=== PATIENT | male | born 1970 | race Caucasian/White ===

== ENCOUNTER 2018-07-28 11:23 | Emergency (ER) | payer OTHER ==
[2018-07-28 11:31] VITALS: TEMP 97.8; BMI 25.8
--- NOTE | 2018-07-28 11:33 | PDOC ---
History of Present Illness - General Chief Complaint: Lightheaded Stated Complaint: DIZZINESS Time Seen by Provider: 07/28/18 11:32 History Source: Patient Exam Limitations: No Limitations - History of Present Illness Initial Comments: Pt is a 47 yo M, with PMH of hypothyroidism (on levothyroxine), who is presenting via EMS with complaints of vertigo and nausea since he woke up this AM. Pt states it started immediately when he awoke "with the room spinning around me" and was worsened when he stood up to go to the bathroom. He had mild ear "pressure" last night, but no rhinorrhea or ear discharge. Pt has had vertigo only once before while blowing his nose, but it improved after a few minutes with no intervention. Pt has chronic sinus issues, and often takes Advil cold and sinus before bed (last nasal scope by ENT showed no irregularities). Pt states he also gets frequent nosebleeds in the morning. Pt denies any recent fevers/chills, head trauma or falls, headache, vision changes , syncope, chest pain, palpitations, SOB, vomiting, abdominal pain, urinary symptoms, diarrhea/constipation, or leg swelling. Social: Pt denies any cigarette, alcohol, or drug use. Pt denies any recent travel or sick contacts. Surgical: no relevant history. Family: mother - TIFFANIE, age 73. 07/28/18 13:50 Past History - Travel Traveled outside of the country in the last 30 days: No Close contact w/someone who was outside of country & ill: No - Past Medical History Allergies/Adverse Reactions: Allergies Allergy/AdvReac Type Severity Reaction Status Date / Time Fish Containing Products Allergy Severe Verified 07/28/18 11:29 Iodine and Iodide Containing Allergy Severe Verified 07/28/18 11:29 Produc Home Medications: Ambulatory Orders Levothyroxine Sodium [Synthroid] 137 mcg PO DAILY 07/28/18 Meclizine HCl 50 mg PO DAILY PRN #30 tablet 07/28/18 COPD: No Thyroid Disease: Yes (HYPO.) - Surgical History Abdominal Surgery: Yes Cholecystectomy: Yes (06/2013) - Family Disease History Family Disease History: Diabetes: Father - Immunization History Immunization Up to Date: No - Suicide/Smoking/Psychosocial Hx Smoking History: Never smoked Have you smoked in the past 12 months: No Number of Cigarettes Smoked Daily: 0 Information on smoking cessation initiated: No Hx Alcohol Use: No Drug/Substance Use Hx: No Substance Use Type: None Review of Systems - Review of Systems Able to Perform ROS?: Yes Is the patient limited Hungarian proficient: No Constitutional: Yes: Weight Stable. No: Chills, Diaphoresis, Fever, Loss of Appetite, Malaise, Weakness HEENTM: Yes: See HPI, Ear Pain (ear pressure last night), Nose Congestion, Nose Bleeding. No: Eye Pain, Blurred Vision, Tearing, Recent change in vision, Double Vision, Ear Discharge, Nose Pain, Tinnitus, Hearing Loss, Throat Pain, Throat Swelling, Mouth Pain, Difficulty Swallowing Respiratory: No: Cough, Orthopnea, Shortness of Breath Cardiac (ROS): No: Chest Pain, Edema, Irregular Heart Rate, Lightheadedness, Palpitations, Syncope, Chest Tightness ABD/GI: No: Constipated, Diarrhea, Nausea, Poor Appetite, Poor Fluid Intake, Vomiting : No: Burning, Dysuria, Pain, Urgency Musculoskeletal: No: Back Pain, Joint Pain, Muscle Weakness, Neck Pain Integumentary: No: Rash Neurological: Yes: Dizziness (vertigo). No: Headache, Numbness, Paresthesia, Seizure, Weakness, Unsteady Gait, Ataxia Psychiatric: No: Change in Appetite Endocrine: No: Increased Urine, Change in Weight Hematologic/Lymphatic: No: Anemia, Blood Clots, Easy Bleeding, Easy Bruising All Other Systems: Reviewed and Negative *Physical Exam - Vital Signs Last Vital Signs Temp Pulse Resp BP Pulse Ox 97.8 F 70 18 138/97 97 07/28/18 11:28 07/28/18 11:28 07/28/18 11:28 07/28/18 11:28 07/28/18 11:28 - Physical Exam Comments: Vitals stable, pt afebrile. Pt sitting upright, appears uncomfortable. Normal body habitus. PE showed pt alert and oriented. bridge opener generally intact, muscular strength and sensation intact. Cerebellar tests ( finger to nose, heel to dempsey) all WNL. No nystagmus or difficulty with EOM, no visual neglect. Vertigo induced by lying pt flat and with upward eye movements. Head normocephalic, atraumatic. No facial tenderness to palpation. Eyes PERRLA, EOMI. Oropharynx with b/l swollen tonsils, but without erythema or exudates. B/l submandibular swelling without tenderness or warmth. No nasal congestion, but boggy nasal turbinates with small excoriations inside nostrils b/l. Hearing intact, clear TMs b/l with no erythema or bulging. Clear heart sounds, S1/S2, no JVD, b/l pedal edema, or heart murmur. Clear lung sounds, no respiratory distress, wheezes, crackles, or accessory muscle use. No abdominal or CVA tenderness to palpation, no rebound, no guarding. Abdomen soft, non-distended, and with normoactive bowel sounds. Skin without jaundice or rash. 07/28/18 13:31 07/28/18 13:46 ED Treatment Course - LABORATORY CBC & Chemistry Diagram: 07/28/18 12:22 07/28/18 12:22 Medical Decision Making - Medical Decision Making Pt was seen at bedside, also will be seen by attending Dr. Gee. Pt presenting via EMS with complaints of vertigo and nausea since he woke up this AM. Pt states it started immediately when he awoke "with the room spinning around me" and was worsened when he stood up to go to the bathroom. He had mild ear "pressure" last night, but no rhinorrhea or ear discharge. Pt has had vertigo only once before while blowing his nose, but it improved after a few minutes with no intervention. Pt has chronic sinus issues, and often takes Advil cold and sinus before bed (last nasal scope by ENT showed no irregularities). Pt states he also gets frequent nosebleeds in the morning. Pt denies any recent fevers/chills, head trauma or falls, headache, vision changes , syncope, chest pain, palpitations, SOB, vomiting, abdominal pain, urinary symptoms, diarrhea/constipation, or leg swelling. Likely peripheral vertigo (benign positional/otolith), and less likely central, considering pt has no FNDs and findings are induced with peripheral motion. No tinnitus to suggest Meniere's. Pt also has history of frequent sinus issues and congestion. Ordered work-up including CBC, CMP, EKG. Provided 25 mg PO meclizine and 4 mg SL zofran for improvement of vertigo. Will continue to reassess pt and monitor for symptomatic improvement. ECG: NSR, intervals WNL. No TWIs or significant ST segment changes. No significant changes from prior ECG. Pt not improved after initial medication. Providing additional 25 mg PO meclizine (total 50 mg PO) and 2 mg IV versed. 07/28/18 13:34 Pt improved after interventions. Will send meclizine 50 mg PO Qday to pt pharmacy. Considering normal lab results and symptomatic improvement, pt can be discharged to home with follow-up. Pt advised to follow-up with PCP in 1-2 days and has been referred to ENT. Strict return precautions provided with pt understanding. 07/28/18 14:26 *DC/Admit/Observation/Transfer Diagnosis at time of Disposition: Vertigo - Discharge Dispostion Condition at time of disposition: Good Decision to Admit order: No - Referrals Referrals: Bin Diaz MD [Primary Care Provider] - Syed Lynne MD [Staff Physician] - - Patient Instructions Printed Discharge Instructions: DI for Vertigo Additional Instructions: You were seen in the ER today for vertigo. The results of your labs today were normal and you improved after medication. Please follow-up with your primary care doctor and ENT within 1-2 days to discuss your visit and make sure your symptoms have improved. Please return to the ER if you have any worsening pain, development of fevers or chills, loss of consciousness, inability to tolerate food or fluids, or any other concerns. I have also sent medication to your pharmacy (meclizine 50 mg tablets). Please take this as prescribed. - Post Discharge Activity
[2018-07-28] MEDS ORDERED: MECLIZINE HCL 25 MG TABLET (FP) PO ONE ×2 (11:54→12:49)
[2018-07-28] MEDS ORDERED: ONDANSETRON *ODT* 4 MG TABLET SL ONE (11:56)
[2018-07-28] MEDS ORDERED: MECLIZINE HCL 25 MG TABLET (FP) ONE ×2 (12:00→12:57)
[2018-07-28] MEDS ORDERED: ONDANSETRON *ODT* 4 MG TABLET ONE (12:01)
[2018-07-28] MEDS ORDERED: SODIUM CHLORIDE 1,000 ML IV STA (12:28)
[2018-07-28 12:32] LABS: BASO % 1.1 % (0-2.0); EOS % 2.6 % (0-4.5); HEMATOCRIT 43.2 % (35.4-49); HEMOGLOBIN 14.7 GM/dL (11.7-16.9); LYMPH % 17.5 % (8-40); MCH 29.7 pg (25.7-33.7); MCHC 33.9 g/dl (32.0-35.9); MEAN CELL VOLUME 87.7 fl (80-96); MEAN PLT VOLUME 7.6 fl (7.5-11.1); NEUT % 71.8 % (42.8-82.8); PLATELET COUNT 237 K/MM3 (134-434); RBC 4.93 M/mm3 (4.00-5.60); RDW 13.2 % (11.9-15.9); WHITE BLOOD COUNT 5.8 K/mm3 (4.0-10.0)
[2018-07-28] MEDS ORDERED: MIDAZOLAM HCL 2 MG/2 ML SINGLE DOSE VIAL IVPUSH ONE (12:49)
--- NOTE | 2018-07-28 12:52 | PDOC ---
Attending Attestation - Resident Resident Name: Johanne Chisholm - ED Attending Attestation I have performed the following: I have examined & evaluated the patient, The case was reviewed & discussed with the resident, I agree w/resident's findings & plan - HPI HPI: 07/28/18 12:50 47-year-old male healthy except for hypothyroidism on thyroxine was in his usual state of normal health until awakening this morning with positional vertigo, no headache/vision change/speech change/vomiting/focal deficit. Vertigo is worse with upward and downward movement of the head, last for a few seconds and then resolves. No head injury, has chronic sinusitis, no acute sinus issues. - Physicial Exam PE: 07/28/18 12:51 Vitals are within normal limits Patient is well-appearing seated in stretcher, conversant Pupils are equal round reactive to light, extraocular movements are intact, visual hunt and acuity are normal TMs are clear Neck supple Neurological exam is normal, vertigo is easily reproducible with any head movement. - Medical Decision Making 07/28/18 12:51 47-year-old male presents with positional vertigo most consistent with BPPV, neurologically intact without red flags for central process. No evidence for acute sinus infection. Trial of meclizine and Valium Given antiemetics and IV fluids Reassess Heart Score/ECG Review #1 ECG reviewed & interpreted by me at: 12:32 General ECG Interpretation: Sinus Rhythm, Normal Rate (62), Normal Intervals ( qtc 416), No acute ischemic changes
[2018-07-28] MEDS ORDERED: MIDAZOLAM HCL 2 MG/2 ML SINGLE DOSE VIAL ONE (12:56)
[2018-07-28 12:59] LABS: ALK PHOS 85 U/L (45-117); ANION GAP 6 MMOL/L (8-16); BILIRUBIN,TOTAL 0.4 mg/dL (0.2-1); BLOOD UREA NITROGEN 18 mg/dL (7-18); CALCIUM 8.9 mg/dL (8.5-10.1); CHLORIDE 107 mmol/L (98-107); CO2 27 mmol/L (21-32); CREATININE 1.4 mg/dL (0.55-1.3); GLUCOSE,RANDOM 100 mg/dL (74-106); POTASSIUM 4.5 mmol/L (3.5-5.1); SGOT/AST 18 U/L (15-37); SGPT/ALT 29 U/L (13-61); SODIUM 140 mmol/L (136-145); TOT PROT 7.4 g/dl (6.4-8.2)
--- NOTE | 2018-07-28 14:35 | EKG ---
Test Reason : Blood Pressure : / mmHG Vent. Rate : 062 BPM Atrial Rate : 062 BPM P-R Int : 154 ms QRS Dur : 092 ms QT Int : 410 ms P-R-T Axes : 054 013 038 degrees QTc Int : 416 ms NORMAL SINUS RHYTHM NORMAL ECG WHEN COMPARED WITH ECG OF 03-MAR-2013 21:37, NO SIGNIFICANT CHANGE WAS FOUND Confirmed by MD Otoole Edward ([id number]) on 07/28/2018 2:35:17 PM Referred By: Confirmed By:Frankie Otoole MD
[2018-07-28 14:48] VITALS: BP 133/75; PULSE 64
== END 2018-07-28 14:44 | disposition home or self-care (01) ==
LOC: JER 11:23
DX: R42 Dizziness and giddiness (principal); E03.9 Hypothyroidism, unspecified
CPT/HCPCS: 36415; 80053; 85025; 93005; 93010; 99283-25; J7030; Q0162

== ENCOUNTER 2021-02-13 16:22 | Emergency (ER) | payer OTHER ==
[2021-02-13 16:32] VITALS: BP 126/75; PULSE 75; TEMP 98.5; BMI 26.1
== END 2021-02-13 17:20 | disposition home or self-care (01) ==
LOC: JERFT 16:22
DX: K04.7 Periapical abscess without sinus (principal)
CPT/HCPCS: 99281-25

== ENCOUNTER 2021-03-29 03:56 | Inpatient (IN) | payer OTHER ==
[2021-03-29 04:19] VITALS: BMI 27.2
[2021-03-29] MEDS ORDERED: SODIUM CHLORIDE 0.9% 500 ML INFUS.BAG IV ONE (04:50)
[2021-03-29] MEDS ORDERED: MECLIZINE HCL 25 MG TABLET (FP) PO ONE (04:50)
[2021-03-29] MEDS ORDERED: MECLIZINE HCL 25 MG TABLET (FP) ONE (04:55)
[2021-03-29 05:42] LABS: BASO % 1.7 % (0-2.0); EOS % 3.9 % (0-4.5); HEMATOCRIT 44.3 % (35.4-49); HEMOGLOBIN 15.1 GM/dL (11.7-16.9); LYMPH % 13.5 % (8-40); MCH 29.6 pg (25.7-33.7); MCHC 34.2 g/dl (32.0-35.9); MEAN CELL VOLUME 86.6 fl (80-96); MEAN PLT VOLUME 7.9 fl (7.5-11.1); NEUT % 74.9 % (42.8-82.8); PLATELET COUNT 256 10^3/uL (134-434); RBC 5.12 M/mm3 (4.00-5.60); RDW 13.5 % (11.9-15.9); WHITE BLOOD COUNT 10.6 K/mm3 (4.0-10.0)
[2021-03-29 05:47] LABS: CHLORIDE 107 mmol/L (98-107); SODIUM 140 mmol/L (136-145)
[2021-03-29] MEDS ORDERED: METOCLOPRAMIDE HCL INJECTION 10 MG/2 ML VIAL IVPB ONE (05:48)
[2021-03-29 05:50] LABS: ALBUMIN 4.1 g/dl (3.4-5.0); ANION GAP 6 MMOL/L (8-16); CALCIUM 9.4 mg/dL (8.5-10.1); CO2 28 mmol/L (21-32)
[2021-03-29 05:51] LABS: BLOOD UREA NITROGEN 14.3 mg/dL (7-18); GLUCOSE,RANDOM 113 mg/dL (74-106)
[2021-03-29 05:53] LABS: CREATININE 1.2 mg/dL (0.55-1.3); SGOT/AST 18 U/L (15-37); SGPT/ALT 36 U/L (13-61)
[2021-03-29 05:54] LABS: CHOLESTEROL 148 mg/dL (50-200); LDL CHOLESTEROL (ONLY SJRH) 71 mg/dL (5-100); TRIGLYCERIDES 116 mg/dL (0-150)
[2021-03-29 05:55] LABS: BILIRUBIN,TOTAL 0.3 mg/dL (0.2-1); TOT PROT 7.6 g/dl (6.4-8.2)
[2021-03-29 05:56] LABS: ALK PHOS 78 U/L (45-117); HDL CHOLESTEROL 49 mg/dL (40-60)
[2021-03-29 05:57] LABS: INR 0.89 (0.83-1.09); PROTHROMBIN TIME (PATIENT) 10.4 SEC (9.7-13.0)
[2021-03-29 06:00] LABS: ACTIVATED PTT 29.1 SECONDS (25.2-36.5)
[2021-03-29] MEDS ORDERED: METOCLOPRAMIDE HCL INJECTION 10 MG/2 ML VIAL ONE (06:18)
[2021-03-29] MEDS ORDERED: LORazepam 2 MG/ML SDV VIAL IVPUSH ONE (07:16)
[2021-03-29] MEDS ORDERED: LORazepam 2 MG/ML SDV VIAL ONE (07:52)
[2021-03-29 08:42] LABS: URINE APPEARANCE CLEAR; URINE BILIRUBIN NEGATIVE (NEGATIVE); URINE COLOR YELLOW; URINE GLUCOSE (UA) NEGATIVE (NEGATIVE); URINE KETONE NEGATIVE (NEGATIVE); URINE LEUK ESTERASE NEGATIVE (NEGATIVE); URINE NITRITE NEGATIVE (NEGATIVE); URINE PROTEIN NEGATIVE (NEGATIVE); URINE UROBILINOGEN 0.2 mg/dL (0.2-1.0)
[2021-03-29 08:48] LABS: EPI CELLS 0 /uL (0-25.1); HYALINE CASTS 0 /uL (0-3.1); URINE BACTERIA 0 /uL (0-1359); URINE RBC 0 /uL (0-23.9); URINE WBC 1 /uL (0-25.8)
[2021-03-29] MEDS ORDERED: MECLIZINE HCL 12.5 MG TABLET PO PRN (09:42)
[2021-03-29] MEDS ORDERED: LORazepam 0.5 MG TABLET PO PRN (09:43)
[2021-03-29] MEDS ORDERED: ENOXAPARIN NA (PORCINE) 40 MG/0.4 ML DISP.SYRIN SQ SCH (10:00)
[2021-03-29] MEDS ORDERED: PATIENT'S OWN MEDICATION (NON-FORMULARY) (Levothyroxine Sodium [Synthroid] 137 MCG Tablet) PO SCH (10:30)
[2021-03-29] MEDS ORDERED: ASPIRIN 81 MG CHEWABLE TABLETS PO SCH (11:00)
[2021-03-29] MEDS ORDERED: LEVOTHYROXINE 112 MCG, LEVOTHYROXINE 25 MCG PO SCH (11:15)
[2021-03-29] MEDS ORDERED: ASPIRIN 81 MG CHEWABLE TABLETS ONE (11:32)
[2021-03-29] MEDS ORDERED: ENOXAPARIN NA (PORCINE) 40 MG/0.4 ML DISP.SYRIN SQ ONE (11:32)
[2021-03-29 13:23] VITALS: TEMP 97.8
[2021-03-29 16:44] VITALS: BP 117/79; PULSE 60
[2021-03-29] MEDS ORDERED: ATORVASTATIN CA 10 MG TABLET (FP) PO SCH (22:00)
[2021-03-30] MEDS ORDERED: LEVOTHYROXINE 112 MCG, LEVOTHYROXINE 25 MCG PO SCH ×2 (07:00)
== END 2021-03-29 17:18 | disposition home or self-care (01) | DRG 111 ==
LOC: JER 03:56 → JERBED 08:58 → OBSVTOIN 09:38
PROVIDERS: ADMIT Internal Medicine; ATTEND Internal Medicine
DX: H81.10 Benign paroxysmal vertigo, unspecified ear (principal); E03.9 Hypothyroidism, unspecified; E78.5 Hyperlipidemia, unspecified; Z09 Encounter for follow-up examination after completed treatment for conditions other than malignant neoplasm; Z86.16 Personal history of COVID-19; F41.8 Other specified anxiety disorders; Z63.4 Disappearance and death of family member; F43.20 Adjustment disorder, unspecified
CPT/HCPCS: 36415; 70450-TC; 80053; 80061; 81003; 82550; 82553; 83036; 84484; 85025; 85610; 85730; 86850; 86900; 86901; 93005; 93010; 99285-25; C9803; G0378; U0003; U0005

== ENCOUNTER 2023-07-29 18:59 | Emergency (ER) | payer OTHER ==
[2023-07-29 19:15] VITALS: BMI 27.2
[2023-07-29 21:19] VITALS: BP 130/90; PULSE 60; RESP 20; TEMP 97.8
== END 2023-07-29 21:29 | disposition home or self-care (01) ==
LOC: JERFT 18:59
DX: R06.02 Shortness of breath (principal); J06.9 Acute upper respiratory infection, unspecified; R09.81 Nasal congestion; R05.9 Cough, unspecified; M54.6 Pain in thoracic spine
CPT/HCPCS: 71046-TC-FY; 99283-25